=== PATIENT | male | born 1945 | race African-American/Black ===

== ENCOUNTER 2019-06-28 22:52 | Observation (INO) ==
[2019-06-28 23:16] LABS: Basophils % 0.7 %; Eosinophils % 0.9 %; Hematocrit 46.3 % (37.5-50.1); Hemoglobin 15.4 g/dL (12.9-16.9); Immature Granulocytes % 0.5 % (0-4); Lymphocytes # 1.3 K/mcL (0.6-4.6); Lymphocytes % 29.9 %; Mean Corpuscular HGB Conc 33.3 g/dL (31.6-35.5); Mean Corpuscular Hemoglobin 34.7 pg (28.0-33.3); Mean Platelet Volume 11.3 fL (9.4-12.4); Monocytes # 0.6 K/mcL (0.0-1.3); Monocytes % 14.1 %; Neutrophils # 2.4 K/mcL (1.6-8.9); Platelet Count 160 K/mcL (140-400); Red Blood Count 4.44 M/mcL (4.19-5.50); Red Cell Distribution Width 12.7 % (11.5-14.5); Segmented Neutrophils % 53.9 %; White Blood Count 4.4 K/mcL (4.3-11.1)
[2019-06-28 23:17] LABS: Mean Corpuscular Volume 104.3 fL (83.0-100.0)
[2019-06-28 23:21] LABS: Prothrombin Time 10.8 Seconds (9.4-12.1)
[2019-06-28 23:24] LABS: Activated Partial Thrombo Time 26.4 Seconds (26.0-36.0)
[2019-06-29 00:45] LABS: BUN/Creatinine Ratio 13 (6-26); Blood Urea Nitrogen 16 mg/dL (8-23); Calcium 9.2 mg/dL (8.6-10.3); Carbon Dioxide 28 mEq/L (23-29); Chloride 102 mEq/L (98-107); Glucose 100 mg/dL (70-105); Osmolality,Calculated 279 (280-300); Potassium 3.6 mEq/L (3.5-5.1); Sodium 134 mEq/L (136-145); eGFR For African Americans > 60 (> 60); eGFR For Non-African Americans 57 (> 60)
[2019-06-29 00:46] LABS: Troponin I < 0.03 ng/mL (< 0.04)
[2019-06-29] MEDS ORDERED: Naloxone 0.4 MG/ML INJ IVP PRN (02:26)
[2019-06-29] MEDS ORDERED: Ketorolac 15 MG/ML VIAL IVP PRN (02:54)
[2019-06-29] MEDS ORDERED: *HR* Promethazine 25 MG/ML VIAL IM ONE (02:56)
[2019-06-29] MEDS ORDERED: Nitroglycerin 0.4 MG TAB.SUBL SL SCH (04:30)
[2019-06-29] MEDS ORDERED: *HR* Heparin 5,000 UNIT/ML VIAL SQ SCH (06:00)
[2019-06-29] MEDS ORDERED: Aspirin Enteric Coated 81 MG Tablet PO SCH (09:00)
[2019-06-29] MEDS ORDERED: Folic Acid 1 MG TABLET PO SCH (09:00)
[2019-06-29] MEDS ORDERED: Thiamine (B-1) 100 MG TABLET PO SCH (09:00)
[2019-06-29 10:47] VITALS: BP 119/77
== END 2019-06-29 13:42 | disposition home or self-care (01) ==
LOC: EMEROOARM 22:52 → 3BNU 22:52 → SUATTDRO 06-29 01:09 → 3BNU 06-29 01:30
PROVIDERS: ADMIT Family Medicine; ATTEND Internal Medicine